=== PATIENT | female | born 1950 | race Hispanic/Latino ===

== ENCOUNTER 2020-07-24 08:47 | Outpatient (CLI) | payer MEDICARE ==
--- NOTE | 2020-07-24 11:00 | Cat Scan Report ---
CT CHEST WITHOUT CONTRAST INDICATION / CLINICAL INFORMATION: RIGHT PULMONARY NODULE. TECHNIQUE: Axial CT images were obtained through the chest without contrast. All CT scans at this location are p erformed using CT dose reduction for ALARA by means of automated exposure control. COMPARISON: CT abdomen 05/06/2009 FINDINGS: NECK BASE: No significant abnormality. HEART: Multivessel coronary artery atherosclerotic calcification. THORACIC AORTA: Upper limits size normal thoracic aorta size with partially visualized fusiform ectas ia of the abdominal aorta. Moderate atherosclerotic calcification is present. MEDIASTINUM and JANIYA: No significant abnormality. LUNGS/AIRWAYS: Severe pulmonary emphysema. 1.6 x 1.4 cm pulmonary nodule along the major fissure in the middle lobe (axial series 2 image 66) PLEURA: No significant pleural effusion. No pneumothorax. UPPER ABDOMEN: No significant abnormality. CHEST WALL: Left anterior chest wall pacing device with transvenous leads. SKELETAL SYSTEM: Possible minimally displaced manubrial fracture, however there is significant motion artifact in this region and the offset could be related to motion artifact. IMPRESSION: 1. 1.6 x 1.4 cm right middle lobe pulmonary nodule. Fleischner Society guidelines recommends follow-u p chest CT in 3 months, PET/CT, or histologic sampling for further evaluation. 2. Severe pulmonary emphysema. 3. Possible acute minimally displaced manubrial fracture, however there is significant motion artifac t in this region and the offset could be related to motion artifact. Recommend clinical correlation a nd further evaluation as warranted. Signer Name: Jesse Knutson MD Signed: 07/24/2020 10:56 AM Workstation Name: [id number]
== END 2020-07-24 08:48 | disposition home or self-care (01) ==
LOC: CT 08:47
PROVIDERS: ATTEND Internal Medicine
DX: R91.1 Solitary pulmonary nodule (principal); I25.10 Atherosclerotic heart disease of native coronary artery without angina pectoris; J43.9 Emphysema, unspecified; I70.0 Atherosclerosis of aorta
CPT/HCPCS: 71250

== ENCOUNTER 2021-04-07 18:11 | Emergency (ER) | payer MEDICARE ==
--- NOTE | 2021-04-07 19:10 | Emergency Department Report ---
ED General Adult HPI - General Chief complaint: Tube Replacement Stated complaint: GI TUBE PLACEMENT PUI?: No Time Seen by Provider: 04/07/21 18:58 Source: family, EMS ( EMS documentation not available at time of chart dictation ), old records reviewed Mode of arrival: Stretcher Limitations: Language Barrier, Other (Patient is a poor historian. Patient not able to answer open ended or close ended questions.) - History of Present Illness Initial comments: The patient was evaluated in the emergency department for symptoms described in the history of present illness. He/she was evaluated in the context of the global COVID-19 pandemic, which necessitated consideration that the patient might be at risk for infection with the virus that causes COVID-19. Institutional protocols and algorithms that pertain to the evaluation of patients at risk for COVID-19 are in a state of rapid change based on information released by regulatory bodies including the CDC and federal and state organizations. These policies and algorithms were followed during the patient's care in the emergency department. Please note that these policies, procedures and recommendations changed on a rapid basis. Primary CARE doctor: Dr. Reginaldo Ellsworth, Dr. Jatinder Benavides Past medical history: Feeding tube in place in left lower quadrant, secondary to stroke in 2018. Dysphagia, GERD, generalized weakness, and depression. Patient is a 71-year-old female She is sent to the emergency room by a local long term and rehabilitation center with a written down complaint of left lower quadrant pain, and pain over her feeding tube. The patient points to her left lower quadrant indicates that she is having pain there. She cannot describe the nature of her pain, describe exacerbating, relieving factors or aggravating factors, nor can she tell me how long the pain has been there for. I called up [facility] [place], at the listed number below. The resistor testing machine operator connected me to the patient's floor, where human being did not brain picker the phone. In addition, the voicemail box is full, and not excepting messages. Therefore, I am not able to obtain additional information or collateral information at this time. Discussed with patient's brother, who indicates that the patient has had feeding tube in place since 2018 secondary to a stroke. In addition, this was confirmed by her primary care doctor, Dr. Ellsworth. [facility] [id number], [place] [address] -: unknown Location: abdomen - Related Data Previous Rx's Medication Instructions Recorded Last Taken Type Aspirin [Aspirin BABY CHEW TAB] 81 mg PO QDAY #30 tab.chew 04/08/21 Unknown Rx Rosuvastatin Calcium 10 mg PO QHS #30 tablet 04/08/21 Unknown Rx Allergies Allergy/AdvReac Type Severity Reaction Status Date / Time No Known Allergies Allergy Unverified 04/07/21 19:56 ED Review of Systems ROS: Stated complaint: GI TUBE PLACEMENT Other details as noted in HPI Comment: Unobtainable due to pts medical conditions ED Past Medical Hx - Medications Home Medications: Home Medications Medication Instructions Recorded Confirmed Last Taken Type Aspirin [Aspirin BABY CHEW TAB] 81 mg PO QDAY #30 tab.chew 04/08/21 Unknown Rx Rosuvastatin Calcium 10 mg PO QHS #30 tablet 04/08/21 Unknown Rx ED Physical Exam - General Limitations: Other (Patient is awake, and will answer some yes/no questions by nodding yes or no.) General appearance: in no apparent distress, anxious - Head Head exam: Present: atraumatic, normocephalic - Eye Eye exam: Present: normal appearance, EOMI - ENT ENT exam: Present: normal exam, normal orophraynx, mucous membranes moist, normal external ear exam - Neck Neck exam: Present: normal inspection, full ROM. Absent: tenderness, meningismus - Respiratory Respiratory exam: Present: normal lung sounds bilaterally. Absent: respiratory distress, wheezes, rales, rhonchi, stridor, decreased breath sounds - Cardiovascular Cardiovascular Exam: Present: regular rate, normal rhythm, normal heart sounds. Absent: bradycardia, tachycardia, irregular rhythm, systolic murmur, diastolic murmur, rubs, gallop - GI/Abdominal GI/Abdominal exam: Present: soft, other (There is a feeding tube noted in the left lower quadrant without redness, pus or streaking. The patient winces when it is manipulated.). Absent: distended, tenderness, guarding, rebound, rigid, pulsatile mass - Extremities Exam Extremities exam: Present: normal inspection (The bilateral upper and lower extremities are warm and well perfused.), full ROM, other (1+ pulses noted in the bilateral dorsalis pedis distribution. Femoral pulses not appreciated. The bilateral lower extremities are warm and well perfused. There is no pain with p assive range of motion of the feet or toes. 2+ pulses noted in the bilateral upper extremities. No pulsatile abdominal). Absent: pedal edema, calf tenderness - Back Exam Back exam: Present: normal inspection, full ROM. Absent: tenderness, CVA tenderness (R), CVA tenderness (L), paraspinal tenderness, vertebral tenderness - Neurological Exam Neurological exam: Present: alert (The patient is awake. The patient was 4 extremities. The patient does not articulate in sentences.), other (There is no facial droop. EOMI. 5 out of 5 strength in 4 extremities. Sensation is intact to light touch in 4 extremities) - Psychiatric Psychiatric exam: Present: anxious - Skin Skin exam: Present: warm, dry, intact, normal color. Absent: rash ED Course Vital Signs 04/07/21 18:24 Temperature 98.7 F Pulse Rate 81 Respiratory 16 Rate Blood Pressure 132/78 [Left] - Reevaluation(s) Reevaluation #1: 04/07/21 22:03 Differential diagnosis, including but not limited to: Colitis, diverticulitis, renal colic, urinary tract infection, tube malposition, encounter for feeding tube repositioning/replacement Assessment and plan: 71-year-old female, who as per report from her brother, and primary care doctor, has a long-term feeding tube established in her left lower quadrant, referred to the emergency room for tube evaluation, possible change, and left lower quadrant abdominal pain. Laboratory studies so far unremarkable, urinalysis pending, CT scan of the abdomen pelvis will be obtained, prior to to manipulation. The patient appears to have an 18 Turkmen feeding tube in her left lower quadrant. Reassess after CT scan has resulted. 04/08/21 00:18 Medical records from [facility] reviewed and appreciated. Patient recently admitted to [facility] from January 20 to January 28, 2021. CT scan of her abdomen pelvis at that time demonstrated extensive dilatation of biliary tree, including common bile duct. The patient underwent ERCP with sphincterotomy, and stone removal, and stent insertion. Tube feeds have been resolved. She is found to have severe protein calorie malnutrition. She also had an ICD implantation. She had a CT scan of her brain which showed prior evidence of right frontal craniectomy. Cerebral atrophy, and white matter changes were noted, along with encephalomalacia. 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 She is also noted to have persistent extensive dilatation of the biliary tree including the common bile duct. She was also noted to have a right-sided renal mass. Her CT scan today appears to be similar to her prior CT scan from a few months ago at [facility]. Contacted vascular surgeon on-call, Dr. Padilla. Discussed the patient's history, physical, and CT scan findings. The patient CT scan findings appear to be chronic. She is not ambulatory, has 1+ dorsalis pedis pulses in her bilateral lower extremities, and the bilateral lower extremities are warm, and well- perfused. Dr. Padilla recommends aspirin, and follow-up with primary care. Given patient's advanced age, multiple medical comorbidities, lack of ambulatory status, the patient is not a candidate for surgical evaluation or intervention, and baby aspirin should be sufficient. CT scan also demonstrated appropriate placement of feeding tube. I attempted to aspirate fluid from the feeding tube, but was unsuccessful. The patient's feeding tube was therefore replaced by myself. Please reference the procedure note. The patient's CT scan findings today appear to be chronic when compared to prior CT scan findings. Her feeding tube was changed, and she has been hemodynamically stable. Overall prognosis is poor, but the patient does not appear to be emergently decompensated at this time. The patient's urinalysis is not consistent with urinary tract infection. 04/08/21 00:22 - Feeding Tube Replacement Reason for Replacement: not functioning/damaged Initial Tube Inserted: greater than 4 weeks (Placed in 2018) Type of Tube: G-J Tube Use of Tube: medications and feeding Insertion Site Prior to Procedure: excoriated, GI fluid leaking Tube Used for Reinsertion: other (18 Turkmen feeding tube) Turkmen Tube Size (F): 18 Balloon Size (mls): 10 Verification of Placement: other (Postprocedural x-ray) Tube Secured by: tape/dressing Patient Tolerated Procedure: well Complications: other (No complications noted) ED Medical Decision Making - Lab Data Result diagrams: 04/07/21 19:59 04/07/21 19:59 Vital Signs 04/07/21 18:24 Temperature 98.7 F Pulse Rate 81 Respiratory 16 Rate Blood Pressure 132/78 [Left] Lab Results 10/10/21 10/10/21 10/10/21 Range/Units 19:59 19:59 22:30 WBC 9.0 (4.5-11.0) K/mm3 RBC 3.81 (3.65-5.03) M/mm3 Hgb 12.6 (10.1-14.3) gm/dl Hct 37.0 (30.3-42.9) % MCV 97 (79-97) fl MCH 33 H (28-32) pg MCHC 34 (30-34) % RDW 14.2 (13.2-15.2) % Plt Count 225 (140-440) K/mm3 Lymph % (Auto) 20.7 (13.4-35.0) % [place] % (Auto) 8.4 H (0.0-7.3) % Eos % (Auto) 4.8 H (0.0-4.3) % Baso % (Auto) 0.7 (0.0-1.8) % Lymph # (Auto) 1.9 (1.2-5.4) K/mm3 [place] # (Auto) 0.8 (0.0-0.8) K/mm3 Eos # (Auto) 0.4 (0.0-0.4) K/mm3 Baso # (Auto) 0.1 (0.0-0.1) K/mm3 Seg Neutrophils % 65.4 (40.0-70.0) % Seg Neutrophils # 5.9 (1.8-7.7) K/mm3 Sodium 136 L (137-145) mmol/L Potassium 4.7 (3.6-5.0) mmol/L Chloride 100.7 (98-107) mmol/L Carbon Dioxide 24 (22-30) mmol/L Anion Gap 16 mmol/L BUN 13 (7-17) mg/dL Creatinine 0.4 L (0.6-1.2) mg/dL Estimated GFR > 60 ml/min BUN/Creatinine Ratio 33 % Glucose 123 H (65-100) mg/dL Calcium 9.4 (8.4-10.2) mg/dL Urine Color Clara (Yellow) Urine Turbidity Clear (Clear) Urine pH 5.0 (5.0-7.0) Ur Specific Monroe 1.032 H (1.003-1.030) Urine Protein 30 mg/dl (Negative) mg/dL Urine Glucose (UA) Neg (Negative) mg/dL Urine Ketones Neg (Negative) mg/dL Urine Blood Neg (Negative) Urine Nitrite Neg (Negative) Urine Bilirubin Neg (Negative) Urine Urobilinogen 4.0 (<2.0) mg/dL Ur Leukocyte Esterase Neg (Negative) Urine WBC (Auto) 1.0 (0.0-6.0) /HPF Urine RBC (Auto) 1.0 (0.0-6.0) /HPF U Epithel Cells (Auto) 2.0 (0-13.0) /HPF Urine Bacteria (Auto) 1+ (Negative) /HPF Urine Mucus 2+ /HPF Pulse oximetry 98% on room air - EKG Data -: EKG Interpreted by Sc - Radiology Data Radiology results: pending, report reviewed, image reviewed [facility] [address] [id number] Cat Scan Report Signed Patient: SAMMY MORAN MR#: [id number] 62 : 1950 Acct:[id number] Age/Sex: 71 / F ADM Date: 04/07/21 Loc: ED Attending Dr: Ordering Physician: AMBER GREY MD Date of Service: 04/07/21 Procedure(s): CT abdomen pelvis w con Accession Number(s): [id number] cc: AMBER GREY MD CT ABDOMEN AND PELVIS WITH CONTRAST INDICATION: llq abd pain, feeding tube. TECHNIQUE: Axial CT images were obtained through the abdomen and pelvis after 100 cc IV contrast. All CT scans at this location are performed using CT dose reduction for ALARA by means of automated e xposure control. COMPARISON: CT abdomen pelvis 05/06/2009 FINDINGS: LOWER CHEST: Severe bullous emphysema. 3.3 cm right middle lobe solid mass LIVER: No significant abnormality. GALLBLADDER: No significant abnormality. BILE DUCTS: No significant abnormality. PANCREAS: No significant abnormality. SPLEEN: No significant abnormality. ADRENALS: No significant abnormality. RIGHT KIDNEY and URETER: 1.8 cm solid hypodense right renal lesion image 63 worrisome for renal cell carcinoma, new since prior study LEFT KIDNEY and URETER: No significant abnormality. STOMACH and SMALL BOWEL: PEG tube in stomach. COLON: No significant abnormality. APPENDIX: No significant abnormality. PERITONEUM: No free fluid. No free air. No fluid collection. LYMPH NODES: No significant adenopathy. AORTA and ARTERIES: Severe atherosclerotic vascular calcifications with large amount of mural thrombus within the abdominal aorta. 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 IVC and VEINS: No significant abnormality. URINARY BLADDER: No significant abnormality. REPRODUCTIVE ORGANS: No significant abnormality. ADDITIONAL FINDINGS: None. SKELETAL SYSTEM: Osteopenia with old L4 compression fracture with 30% loss of vertebral body height IMPRESSION: 1. 3.3 cm right middle lobe solid mass could represent pulmonary metastasis or primary lung cancer. 2. 2.5 cm hyperdense lesion proximal common bile duct worrisome for Klatskin-type tumor with moderate biliary ductal dilatation despite presence of stent. 3. New solid 1.8 cm right renal lesion worrisome for renal cell carcinoma. 4. Left iliac artery occlusion. Signer Name: Tha Park MD Signed: 04/07/2021 11:31 PM Workstation Name: [id number] Transcribed By: TL Dictated By: Tha Park MD Electronically Authenticated By: Tha Park MD Signed Date/Time: 04/07/212330 DD/ 23 ABDOMEN 2 VIEWS WITH AND WITHOUT GASTROGRAFIN INJECTION INDICATION: s/p g tube replacement. COMPARISON: None available. FINDINGS: Peanut Butter Maker film shows biliary stent and G-tube overlying the mid abdomen. Contrast was instilled through the gastrostomy tube with intraluminal contrast seen within the stomach and proximal small bowel. IMPRESSION: Intraluminal G-tube placement Signer Name: Tha Park MD Signed: 04/07/2021 11:45 PM Workstation Name: [id number] Critical care attestation.: If time is entered above; I have spent that time in minutes in the direct care of this critically ill patient, excluding procedure time. ED Disposition Clinical Impression: Pulmonary mass, Feeding tube dysfunction, Aortic mural thrombus, Iliac artery occlusion, Abnormal finding on diagnostic imaging of right kidney, Abnormal finding of biliary tract, Lumbar compression fracture Disposition: 03 LONG TERM FACILITY Is pt being admited?: No Does the pt Need Aspirin: No Condition: Fair Additional Instructions: Please continue current outpatient medications. Please take aspirin as directed. CT scan of the abdomen pelvis today demonstrated a pulmonary mass, renal mass, and abnormal biliary findings. These findings are very suspicious for cancer, tumor, malignancy. Recommend the patient's primary care doctor contact medical records department, to obtain copies of laboratory studies, imaging studies, and follow-up on these findings. CT scan of the abdomen pelvis also demonstrated a chronic known left-sided iliac occlusion, present since , and demonstrated at [facility]. Patient was also found to have a lumbar compression fracture, which appears to be chronic, as well as an aortic mural thrombosis. Recommend clarification of goals of care with patient's family and next of kin, and medical decision maker Findings are very concerning for cancer, tumor, malignancy, which will require further outpatient coordination, follow-up. Vascular surgery has recommended that given the patient's poor mobility and ambulatory status, no outpatient follow-up with vascular surgery is necessary. The patient may take an aspirin as directed. The patient's feeding tube was replaced here while in the emergency room today. Please return to the emergency room right away with new pain, worsened pain, migration of pain, projectile vomiting, change in mental status, confusion, inability to tolerate liquid feeds, new, worsened or different symptoms not present on the initial emergency room evaluation. Prescriptions: Rosuvastatin Calcium 10 mg PO QHS #30 tablet Aspirin [Aspirin BABY CHEW TAB] 81 mg PO QDAY #30 tab.chew Referrals: REGINALDO ELLSWORTH MD [Primary Care Provider] - 3-5 Days
[2021-04-07] MEDS ORDERED: SODIUM CHLORIDE 0.9% 500 ML 500 ML IV ONE (19:47)
[2021-04-07] MEDS ORDERED: MORPHINE 4 MG/1 ML INJ IV ONE (19:47)
[2021-04-07 20:13] LABS: Basophils # (Auto) 0.1 K/mm3 (0.0-0.1); Basophils % (Auto) 0.7 % (0.0-1.8); Eosinophils # (Auto) 0.4 K/mm3 (0.0-0.4); Eosinophils % (Auto) 4.8 % (0.0-4.3); Hemoglobin 12.6 gm/dl (10.1-14.3); Lymphocytes # (Auto) 1.9 K/mm3 (1.2-5.4); Lymphocytes % (Auto) 20.7 % (13.4-35.0); Mean Corpuscular HGB Conc 34 % (30-34); Mean Corpuscular Volume 97 fl (79-97); Monocytes # (Auto) 0.8 K/mm3 (0.0-0.8); Monocytes % (Auto) 8.4 % (0.0-7.3); Platelet Count 225 K/mm3 (140-440); Red Blood Count 3.81 M/mm3 (3.65-5.03); Red Cell Distribution Width 14.2 % (13.2-15.2)
[2021-04-07 20:31] LABS: Blood Urea Nitrogen 13 mg/dL (7-17); Calcium 9.4 mg/dL (8.4-10.2); Hemolysis Index 8
[2021-04-07 20:36] LABS: BUN/Creatinine Ratio 33
[2021-04-07 23:13] LABS: Bacteria,Urine 1+ /HPF (Negative); Bilirubin,Urine NEG (Negative); Blood,Urine NEG (Negative); Color,Urine Amber (Yellow); Mucus,Urine 2+ /HPF
--- NOTE | 2021-04-07 23:35 | Cat Scan Report ---
CT ABDOMEN AND PELVIS WITH CONTRAST INDICATION: llq abd pain, feeding tube. TECHNIQUE: Axial CT images were obtained through the abdomen and pelvis after 100 cc IV contrast. All CT scans at this location are performed using CT dose reduction for ALARA by means of automated exposure contr ol. COMPARISON: CT abdomen pelvis 05/06/2009 FINDINGS: LOWER CHEST: Severe bullous emphysema. 3.3 cm right middle lobe solid mass LIVER: No significant abnormality. GALLBLADDER: No significant abnormality. BILE DUCTS: No significant abnormality. PANCREAS: No significant abnormality. SPLEEN: No significant abnormality. ADRENALS: No significant abnormality. RIGHT KIDNEY and URETER: 1.8 cm solid hypodense right renal lesion image 63 worrisome for renal cell carcinoma, new since prior study LEFT KIDNEY and URETER: No significant abnormality. STOMACH and SMALL BOWEL: PEG tube in stomach. COLON: No significant abnormality. APPENDIX: No significant abnormality. PERITONEUM: No free fluid. No free air. No fluid collection. LYMPH NODES: No significant adenopathy. AORTA and ARTERIES: Severe atherosclerotic vascular calcifications with large amount of mural thrombu s within the abdominal aorta. 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 IVC and VEINS: No significant abnormality. URINARY BLADDER: No significant abnormality. REPRODUCTIVE ORGANS: No significant abnormality. ADDITIONAL FINDINGS: None. SKELETAL SYSTEM: Osteopenia with old L4 compression fracture with 30% loss of vertebral body height IMPRESSION: 1. 3.3 cm right middle lobe solid mass could represent pulmonary metastasis or primary lung cancer. 2. 2.5 cm hyperdense lesion proximal common bile duct worrisome for Klatskin-type tumor with moderate biliary ductal dilatation despite presence of stent. 3. New solid 1.8 cm right renal lesion worrisome for renal cell carcinoma. 4. Left iliac artery occlusion. Signer Name: Tha Park MD Signed: 04/07/2021 11:31 PM Workstation Name: [id number]
--- NOTE | 2021-04-08 00:18 | Event Note ---
Date: 04/08/21 71 year old female with bedbound status with numerous risk factors who has incidental note of severe PVD with ileofemoral occlusive disease. No rest pain. No ulcers or gangrene. No claudication (does not ambulate). No need for any intervention. Not sure what the point of followup with vascular would provide. Recommend antiplatelet therapy (aspirin 81 mg po qdaily) and statin therapy.
--- NOTE | 2021-04-08 00:49 | XRay Report ---
ABDOMEN 2 VIEWS WITH AND WITHOUT GASTROGRAFIN INJECTION INDICATION: s/p g tube replacement. COMPARISON: None available. FINDINGS: Panel Raiser Operator film shows biliary stent and G-tube overlying the mid abdomen. Contrast was instilled through t he gastrostomy tube with intraluminal contrast seen within the stomach and proximal small bowel. IMPRESSION: Intraluminal G-tube placement Signer Name: Tha Park MD Signed: 04/08/2021 12:45 AM Workstation Name: [id number]
[2021-04-08 04:49] VITALS: BP 126/89
--- NOTE | 2021-04-08 11:10 | Electrocardiograph Report ---
[facility] Test Date: 2021-04-07 Test Time: 20:50:20 Pat Name: SAMMY MORAN Department: Room: Gender: F Range Scientist: DAHLIA : 1950 Requested By: AMBER GREY Order Number: [id number] Reading MD: Lorenzo Subramanian Measurements Intervals Rudyard Rate: 81 P: 45 IN: 160 QRS: -78 QRSD: 107 T: 47 QT: 403 QTc: 469 Interpretive Statements Atrial-sensed ventricular-paced rhythm No previous ECG available for comparison Electronically Signed On 04-08-2021 11:10:21 EDT by Lorenzo Subramanian
== END 2021-04-08 02:55 ==
LOC: ED 18:11
DX: K94.23 Gastrostomy malfunction (principal); S32.000A Wedge compression fracture of unspecified lumbar vertebra, initial encounter for closed fracture; R91.8 Other nonspecific abnormal finding of lung field; I21.9 Acute myocardial infarction, unspecified; I74.5 Embolism and thrombosis of iliac artery; R93.421 Abnormal radiologic findings on diagnostic imaging of right kidney; K83.9 Disease of biliary tract, unspecified; X58.XXXA Exposure to other specified factors, initial encounter; Y93.89 Activity, other specified; Y92.89 Other specified places as the place of occurrence of the external cause; Y99.8 Other external cause status
CPT/HCPCS: 36415; 43762; 74018; 74177; 80048; 81001; 85025; 93005; 96361; 96374; 99284; J2270; J7040; Q9967; 99285